=== PATIENT | female | born 1955 | race Caucasian/White ===

== ENCOUNTER 2018-10-21 08:57 | Day surgery (SDC) | payer OTHER ==
[~2018-10-21] VITALS: Ht 170.2 cm; Wt 91.3 kg
[2018-10-21] VITALS (10 sets, daily range): BP systolic 84–120; BP diastolic 50–73; PULSE 51–80; RESP 14–16; Ht 170.2 cm; Wt 91.3 kg
[2018-10-21] MEDS ORDERED: SIMV40TA7 (09:45)
[2018-10-21] MEDS ORDERED: ALLO100T ORAL (09:45)
[2018-10-21] MEDS ORDERED: BENA20TA4 ORAL (09:45)
[2018-10-21] MEDS ORDERED: GABA300C16 ORAL (09:45)
[2018-10-21] MEDS ORDERED: METF-849 ORAL (09:46)
--- NOTE | 2018-10-21 10:22 | PREAC ---
Date/Time of Note Date/Time of Note DATE: 10/21/18 TIME: 10:21 Anesthesia Eval and Record Evaluation Time Pre-Procedure Interview DATE: 10/21/18 TIME: 10:21 Age 63 Sex female NPO: 8 hrs Preoperative diagnosis posterior scalp mass Planned procedure excision of posterior scalp mass Past Medical History Past Medical History: Includes Cardio: HTN, Dyslipidemia Endo: Diabetes Neuro: Peripheral neuropathy GI: Obesity Surgery & Anesthesia Issues No known issue Meds Anticoagulation: Yes Beta Long within 24 hr: Yes Reason Beta Long not given: Pt. not on B-Long Reported Medications Metformin* (Glucophage*) 500 Mg Tab, 1 TAB ORAL DAILY 10/21/18 Simvastatin (Simvastatin) 40 Mg Tablet 10/21/18 Gabapentin* (Gabapentin*) 300 Mg Capsule, 1 CAP ORAL BID 10/21/18 Allopurinol* (Allopurinol*) 100 Mg Tablet, 1 TAB ORAL DAILY 10/21/18 Benazepril Hcl* (Benazepril Hcl*) 20 Mg Tablet, 1 TAB ORAL DAILY 10/21/18 Meds reviewed: Yes Allergies Coded Allergies: No Known Allergy (Unverified , 10/21/18) Allergies Reviewed: Yes Labs/Studies Labs Reviewed: Reviewed by anesthesiologist Result Diagram: 10/21/18 0900 Laboratory Tests 10/21/18 09:00 test: N/A Studies: ECG, CXR Pre-procedure Exam Last vitals Vital Signs Date Temp Pulse Resp B/P (MAP) Pulse Ox O2 O2 Flow FiO2 Time Delivery Rate 10/21/18 97.7 51 16 120/68 99 Room Air 10:01 (85) Airway: Adequate mouth opening, Adequate thyromental dist Mallampati: Mallampati II Teeth: Normal Lung: Normal Heart: Normal ASA Physical Status ASA physical status: 2 Emergency: None Planned Anesthetic General/MAC: LMA Planned Pain Management Parenteral pain med Pre-operative Attestations Prior to commencing anesthesia and surgery, the patient was re-evaluated, there was verification of: *The patient's identity *The results of appropriate recent lab work and preoperative vital signs *The above evaluation not changing prior to induction *Anesthetic plan, risk benefits, alternative and complications discussed with patient/family; questions answered; patient/family understands, accepts and wishes to proceed. TEE COHEN October 21, 2018 10:22
[2018-10-21] MEDS ORDERED: BUPIVACAINE 0.5%/EPI (SDV) 30 ML INJ ONE (10:23)
[2018-10-21] MEDS ORDERED: CEFAZOLIN 2 GM/50 ML (PMX) 50 ML IVPB ONE (10:30)
[2018-10-21] MEDS ORDERED: SOD CHLORIDE 0.9% 1,000 ML IV SCH (10:30)
[2018-10-21] MEDS ORDERED: LIDOCAINE 2% (SDV) 5 ML INJ ONE (10:31)
[2018-10-21] MEDS ORDERED: FENTAnyl 50 MCG/ML VIAL ONE (10:31)
[2018-10-21] MEDS ORDERED: PROPOFOL 100 ML ONE (10:31)
[2018-10-21] MEDS ORDERED: NEOMYC/POLYMYX/BACIT 30 GM OINT ONE (11:17)
--- NOTE | 2018-10-21 11:24 | SIPON ---
Date/Time of Note Date/Time of Note DATE: 10/21/18 TIME: 11:22 Operative Report Preoperative Diagnosis History of breast cancer need for Chemo-Port removal Postoperative Diagnosis Same Operation/Procedure Performed Removal of Chemo-Port left subclavian location Surgeon see signature line assistant cook Dr Lewis Anesthesia: general Estimated blood loss: 0 - 10 ml's Transfusion Required none Specimen Chemo-Port gross only Grafts/Implants none Complications none THIERNO MCGILL MD October 21, 2018 11:24
[2018-10-21] MEDS ORDERED: ONDANSETRON 4 MG INJ IV PRN (11:30)
[2018-10-21] MEDS ORDERED: FENTAnyl 50 MCG/ML VIAL IV PRN ×3 (11:30)
[2018-10-21] MEDS ORDERED: EPHEDrine SULFATE 50 MG/5 ML SYG IV PRN (11:30)
[2018-10-21] MEDS ORDERED: MEPERIDINE 25 MG INJ IV PRN (11:30)
[2018-10-21] MEDS ORDERED: LABETALOL HCL 20MG INJ IV PRN (11:30)
[2018-10-21] MEDS ORDERED: OXYCODONE/ACETAMINOPHEN (5/325) TAB PO PRN ×2 (11:30)
[2018-10-21] MEDS ORDERED: MIDAZOLAM 1 MG/ML 2 ML INJ IV PRN (11:30)
[2018-10-21] MEDS ORDERED: ALBUTEROL 0.083% (NEB) 2.5 MG/3 ML AMP HHN PRN (11:30)
[2018-10-21] MEDS ORDERED: hydrALAzine 20 MG INJ IV PRN (11:30)
[2018-10-21] MEDS ORDERED: DIPHENHYDRAMINE 50 MG INJ IV PRN (11:30)
--- NOTE | 2018-10-21 11:32 | PAC ---
Date/Time of Note Date/Time of Note DATE: 10/21/18 TIME: 11:32 Post-Anesthesia Notes Post-Anesthesia Note Last documented vital signs Vital Signs Date Temp Pulse Resp B/P (MAP) Pulse Ox O2 O2 Flow FiO2 Time Delivery Rate 10/21/18 97.7 51 16 120/68 99 Room Air 1132 (85) Activity: WNL Respiratory function: WNL Cardiovascular function: WNL Mental status: Baseline Pain reasonably controlled: Yes Hydration appropriate: Yes Nausea/Vomiting absent: Yes TEE COHEN October 21, 2018 11:32
--- NOTE | 2018-10-21 13:37 | OPR ---
DATE OF OPERATION: 10/21/2018 PREOPERATIVE DIAGNOSES: 1. Left parietal scalp lesion. 2. Occipital scalp lesion. POSTOPERATIVE DIAGNOSES: 1. Left parietal scalp lesion. 2. Occipital scalp lesion. OPERATION PERFORMED: Excision of left parietal scalp lesion and excision of occipital scalp lesion. INDICATIONS FOR PROCEDURE: The patient is a 58-year-old female who presented complaining of 2 masses on her scalp as described above. She requested excision. She consented and was scheduled for surge ry. DESCRIPTION OF PROCEDURE: The patient was brought to the operating theater, placed under general ane sthesia. The patient was then placed in the lateral position and the area of the 2 scalp lesions was shaved and prepped and draped in the usual sterile fashion. Attention was first directed to the occ ipital scalp lesion. The area was infiltrated with 0.5% Marcaine local anesthetic with epinephrine. An approximately 3 cm incision was made over the mass. Subcutaneous tissue was dissected with combi [place] of sharp dissection and cautery. 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 It was meticulously dissected from surrounding tissue. It was removed and s ent for permanent pathologic analysis. The wound was irrigated. Minimal bleeding was controlled wit h cautery and the skin incision was reapproximated with 2-0 nylon sutures in vertical mattress fashio n. Attention was then directed to the parietal scalp lesion. This incision was made over it for noah gth of 2 cm. Subcutaneous tissue was dissected with combination of cautery and sharp dissection. Th e encapsulated mass was removed in toto and sent for permanent pathologic analysis. The wound was ir rigated. Minimal bleeding was controlled with cautery and again, the skin was reapproximated with 2- 0 nylon sutures in vertical mattress fashion. The patient tolerated the procedure well. The estimat ed blood loss was 10 mL. There were no complications and the patient was transported in stable condi tion to the recovery room. Dictated By: THIERNO IRVING/DEJA Conf#: [id number] DID#: [id number]
--- NOTE | 2018-10-21 13:44 | RADRPT ---
Vent Rate: 51 bpm RR Interval: 1172 msec MI Interval: 162 msec QRS Duration: 80 msec QT Interval: 467 msec QTC Interval: 431 msec P-R-T [place]: 45 - 1 - 52 degrees Sinus rhythm...normal P axis, V-rate 50- 99 Electronically Signed By: Luiz Castellano
== END 2018-10-21 13:13 | disposition home or self-care (01) ==
LOC: SDS 08:57
PROVIDERS: ATTEND Surgery Surgical Oncology
DX: L72.11 Pilar cyst (principal); I10 Essential (primary) hypertension; E11.9 Type 2 diabetes mellitus without complications; E03.9 Hypothyroidism, unspecified; Z79.84 Long term (current) use of oral hypoglycemic drugs
CPT/HCPCS: 11426; 71045; 80053; 82962; 85025; 85610; 85730; 88307; 93005; J0690; J3010; Z7610